=== PATIENT | female | born 1945 | race Caucasian/White ===

== ENCOUNTER 2022-08-24 21:46 | Emergency (ER) | payer MEDICARE, OTHER ==
[~2022-08-24] VITALS: Ht 137.2 cm; Wt 59.0 kg
--- NOTE | 2022-08-24 22:08 | NUR ---
Dr. Serrato in room at bedside. MSE in progress.
[2022-08-24] MEDS ORDERED: NITROGLYCERIN OINT 1 GM PACKET TP ONE ×2 (22:15→23:09)
[2022-08-24] MEDS ORDERED: ASPIRIN 81 MG TAB.CHEW PO ONE (22:15)
[2022-08-24] MEDS ORDERED: CLONIDINE HCL 0.2 MG TABLET PO ONE (22:30)
[2022-08-24 22:41] LABS: HEMATOCRIT 35.5 % (31.2-41.9); MEAN CORPUSCULAR HEMOGLOBIN 30.5 uug (24.7-32.8); MEAN CORPUSCULAR VOLUME 91.1 fL (75.5-95.3); PLATELET COUNT (AUTO) 261 K/uL (179-408)
[2022-08-24 22:42] LABS: CARBON DIOXIDE 28 mmol/L (21-32); CHLORIDE 105 mmol/L (98-107); GLUCOSE 120 mg/dL (74-106); POTASSIUM 5.2 mmol/L (3.5-5.1); UREA NITROGEN, BLOOD 46 mg/dL (7-18)
[2022-08-24] MEDS ORDERED: CLONIDINE HCL 0.2 MG TABLET ONE (23:09)
[2022-08-24] MEDS ORDERED: ASPIRIN 81 MG TAB.CHEW ONE (23:09)
--- NOTE | 2022-08-25 00:32 | NUR ---
Assited patient to the restroom. Patient is able to ambulate with assistance.
--- NOTE | 2022-08-25 04:12 | NUR ---
Patient taken down for lung perfussion scan.
--- NOTE | 2022-08-25 05:53 | NUR ---
Patient is in room sleeping. Rise and fall of chest noted.
[2022-08-25] MEDS ORDERED: CLON0.1T PO (06:42)
[2022-08-25 07:49] VITALS: BP 109/64
--- NOTE | 2022-08-25 07:49 | NUR ---
Patient discharged to home in stable condition. Written and verbal after care instructions given. Patient verbalizes understanding of instructions. Stressed follow up or return to ER for worsening s/s.
== END 2022-08-25 07:49 | disposition home or self-care (01) ==
LOC: ER 21:46
DX: R07.89 Other chest pain (principal); I10 Essential (primary) hypertension; G20 Parkinson's disease; Z88.0 Allergy status to penicillin; Z79.899 Other long term (current) drug therapy; Z20.822 Contact with and (suspected) exposure to COVID-19
CPT/HCPCS: 99285; 71045; 80048; 83880; 83735; 85025; 85379; 84484 ×3; 36415 ×2; 93005; 78580; 87426; A9540; A4663